=== PATIENT | female | born 1985 | race Caucasian/White ===

== ENCOUNTER → 2016-05-21 | Outpatient (CLI) | payer OTHER ==
[2015-12-09 09:43] VITALS: BP 124/86
[~2016-05-21] MED LIST: ERYT1OIN6 OD; HYDR-2666 PO; HYDR-971 PO; NAPR500T8 PO; OMEP40CA5 PO
--- NOTE | 2016-05-21 14:02 | KCIC ---
Ultrasound Pelvis Indication:Reason For Study Reason: PELVIC PAIN / Spl. Instructions: / History: Technique: Multiple real-time grayscale images were obtained over the pelvis transabdominally and transvaginally. Color Doppler imaging was utilized. Findings: The uterus is normal in size measuring 8.8 x 4.4 x 3.7 cm. The endometrium is also within normal limits measuring 7 mm in thickness. There is a posterior uterine fibroid that measures 3.5 centimeters in size. The right ovary measures 2.2 x 2.0 x 1.6cm. No abnormal right ovarian lesions are identified. Normal blood flow is identified. The left ovary measures 4.3 x 4.1 x 2.9cm. No abnormal left ovarian lesions are identified. There is a 3.7 centimeter septated cyst. There is a small amount of free fluid in the cul-de-sac. Impression: - No acute abnormality. - 3.5 centimeter posterior uterine fibroid. - 3.7 centimeter complex left ovarian cyst. Electronically signed by: Kali De Luna (May 21, 2016 14:01:35)
== END | disposition home or self-care (01) ==
LOC: KCIC US 10:24
PROVIDERS: ATTEND Physician Assistant
DX: R10.2 Pelvic and perineal pain (principal)
CPT/HCPCS: 76830; 76856

== ENCOUNTER 2016-06-01 22:17 | Emergency (ER) | payer OTHER ==
[~2016-06-01] VITALS: Ht 160 cm; Wt 71.7 kg
[~2016-06-01 22:17] MED LIST changes: -HYDR-971 PO; -NAPR500T8 PO
[2016-06-01 22:43] VITALS: BP 128/72
[2016-06-01] MEDS ORDERED: NAPR500T8 PO (22:58)
[2016-06-01] MEDS ORDERED: HYDR-971 PO (22:58)
--- NOTE | 2016-06-01 22:58 | PHYS DOC ---
Past Medical History Past Medical History: Endometriosis, GERD, Other Additional Past Medical Histor: UTERINE FIBROIDS, OVARIAN CYSTS Past Surgical History: Cholecystectomy, Tubal ligation, Other Additional Past Surgical Histo: D&C Alcohol Use: Rarely Drug Use: None Adult General Chief Complaint Chief Complaint: ABDOMINAL PAIN [facility] HPI Patient is a 30 year old female with history of endometriosis, uterine fibroids , and ovarian cyst who presents today with moderate chronic pelvic pain. Patient states she is supposed to follow-up with her COMPUTER ASSEMBLER in 2 weeks to schedule a partial hysterectomy. She states COMPUTER ASSEMBLER is out of town for 2 weeks for spring, she is requesting something for pain. She states she's had a tubal ligation and is not . Review of Systems Review of Systems Constitutional: Denies fever or chills [] Eyes: Denies change in visual acuity, redness, or eye pain [] HENT: Denies nasal congestion or sore throat [] Respiratory: Denies cough or shortness of breath [] Cardiovascular: No additional information not addressed in HPI [] GI:moderate chronic pelvic pain : Denies dysuria or hematuria [] Musculoskeletal: Denies back pain or joint pain [] Integument: Denies rash or skin lesions [] Neurologic: Denies headache, focal weakness or sensory changes [] Endocrine: Denies polyuria or polydipsia [] Allergies Allergies Allergies Coded Allergies Type Severity Reaction Last Updated Verified No Known Drug Allergies 11/12/15 No Physical Exam Physical Exam Constitutional: Well developed, well nourished, no acute distress, non-toxic appearance. [] HENT: Normocephalic, atraumatic, bilateral external ears normal, oropharynx moist, no oral exudates, nose normal. [] Eyes: PERRLA, EOMI, conjunctiva normal, no discharge. [] Neck: Normal range of motion, no tenderness, supple, no stridor. [] Cardiovascular:Heart rate regular rhythm, no murmur [] Lungs & Thorax: Bilateral breath sounds clear to auscultation [] Abdomen: Bowel sounds normal, soft, no tenderness, no masses, no pulsatile masses. [] Skin: Warm, dry, no erythema, no rash. [] Back: No tenderness, no CVA tenderness. [] Extremities: No tenderness, no cyanosis, no clubbing, ROM intact, no edema. [] Neurologic: Alert and oriented X 3, normal motor function, normal sensory function, no focal deficits noted. [] Psychologic: Affect normal, judgement normal, mood normal. [] Current Patient Data Vital Signs Vital Signs Date Time Temp Pulse Resp B/P Pulse Ox O2 Delivery O2 Flow Rate FiO2 06/01/16 22:43 98.0 88 20 128/72 98 Room Air 98.0 EKG EKG [] Radiology/Procedures Radiology/Procedures [] Course & Med Decision Making Course & Med Decision Making Pertinent Labs and Imaging studies reviewed. (See chart for details) Patient is in the ED with chronic pelvic pain due to endometriosis, uterine fibroids and ovarian cyst. She has an appointment with her COMPUTER ASSEMBLER who is currently out of town for 2 weeks. Discharged with [place] and naproxen. Dragon Disclaimer Dragon Disclaimer This electronic medical record was generated, in whole or in part, using a voice recognition dictation system. Departure Departure Impression: Primary Impression: Chronic pelvic pain in female Disposition: 01 HOME, SELF-CARE Condition: STABLE Referrals: ZIYAD LONG MD (PCP) Follow-up with your COMPUTER ASSEMBLER as soon as possible Patient Instructions: Pelvic Pain, Female Additional Instructions: You were seen for chronic pelvic pain. Follow-up with your COMPUTER ASSEMBLER as soon as you can. Come back to the ED for any concerning or worsening symptoms. Scripts Naproxen 500 Mg Tablet.dr1 Tab PO BID #60 TAB Ref 2 Prov:DAVID CAT APRN 06/01/16 Hydrocodone/Apap 5-325 ([place] 5-325 Tablet)1 Each Tablet1-2 Tab PO Q4-6HRS #20 TAB Prov:DAVID CAT APRN 06/01/16 DAVID CAT APRN Jun 01, 2016 22:58
[2016-06-01] MEDS ORDERED: ONDANSETRON ODT 4 MG TAB.RAPDIS PO ONE (23:00)
[2016-06-01] MEDS ORDERED: FENTANYL PF 100 MCG/2 ML VIAL. IM ONE (23:00)
== END 2016-06-01 23:30 | disposition home or self-care (01) ==
LOC: ER 22:17
DX: R10.2 Pelvic and perineal pain (principal); G89.29 Other chronic pain; K21.9 Gastro-esophageal reflux disease without esophagitis
CPT/HCPCS: 81025; 96372; 99283; J3010; Q0162

== ENCOUNTER → 2016-06-18 | Outpatient (CLI) | payer OTHER ==
[2016-06-01 22:43] VITALS: BP 128/72
[~2016-06-18] MED LIST changes: +HYDR-971 PO; +NAPR500T8 PO
[2016-06-18 13:56] LABS: BILIRUBIN,URINE NEGATIVE (NEG); GLUCOSE,URINE NEGATIVE (NEG); NITRITE,URINE NEGATIVE (NEG); PH,URINE 7.5; PROTEIN,URINE NEGATIVE (NEG-TRACE); UROBILINOGEN,URINE 0.2 mg/dL (0.2 mg/dL)
[2016-06-18 14:09] LABS: BACTERIA,URINE 0 /HPF (0-FEW); RBC,URINE OCC /HPF (0-2); SQUAMOUS EPITHELIAL CELL,UR FEW /LPF; WBC,URINE 0 /HPF (0-4)
== END | disposition home or self-care (01) ==
LOC: SURGPAT 12:01
PROVIDERS: ATTEND Specialist
DX: R10.2 Pelvic and perineal pain (principal)
CPT/HCPCS: 81001

== ENCOUNTER 2016-06-25 11:58 | Inpatient (IN) | payer OTHER ==
[~2016-06-25] VITALS: Ht 160 cm; Wt 71.7 kg
[2016-06-25] VITALS (8 sets, daily range): BP systolic 94–114; BP diastolic 45–71
[~2016-06-25 11:58] MED LIST changes: +BUPIVAC MPF-EPI 0.5%-1:200000 30 ML VIAL. ONE; +CEFAZOLIN 2GM PREMIX 50 ML IV PRN; +FENTANYL PF 100 MCG/2 ML VIAL. IV PRN; +HYDROMORPHONE 2 MG/ML VIAL. IV PRN; +IV RINGERS,LACTATED 1000ML 1,000 ML IV SCH; +LIDOCAINE 1% 1 ML SYRINGE. ID PRN; +METHYLENE BLUE 1% 1 ML VIAL. ONE; +METRONIDAZOLE 0.75% TP ONE; +MORPHINE SULFATE 2 MG/ML DISP.SYRIN. IV PRN; +ONDANSETRON PF 4 MG/2 ML VIAL. IV PRN; +PROCHLORPERAZINE 10 MG/2 ML VIAL. IV PRN
[2016-06-25 12:25] LABS: NEG OBC UR NEG; POS OBC UR POS
[2016-06-25] MEDS: FENTANYL PF 100 MCG/2 ML VIAL. IV PRN ×5 (13:27→17:23)
[2016-06-25] MEDS ORDERED: DEXAMETHASONE SOD PHOS 20 MG/5 ML VIAL. ONE (14:18)
[2016-06-25] MEDS ORDERED: ONDANSETRON PF 4 MG/2 ML VIAL. ONE (14:18)
[2016-06-25] MEDS ORDERED: PROPOFOL 20 ML IV ONE (14:18)
[2016-06-25] MEDS ORDERED: LIDOCAINE 2% 100 MG/5 ML SYRINGE. ONE (14:18)
[2016-06-25] MEDS ORDERED: FENTANYL PF 100 MCG/2 ML VIAL. ONE (14:18)
[2016-06-25] MEDS ORDERED: SUCCINYLCHOLINE 200 MG/10 ML VIAL. ONE (14:19)
[2016-06-25] MEDS ORDERED: ROCURONIUM 50 MG/5 ML VIAL. ONE (14:19)
[2016-06-25] MEDS ORDERED: MIDAZOLAM HCL/PF 2 MG/2 ML VIAL. ONE (14:21)
--- NOTE | 2016-06-25 15:07 | PDOC1 ---
History and Physical Date of Admission Date of Admission DATE: 06/25/16 TIME: 15:02 Identification/Chief Complaint Chief Complaint 1. AUB 2. DYSMENORRHEA Source Source: Patient History of Present Illness History of Present Illness 30 y/o WF with hs of AUB and dysmeorrhea unremitting to anti-inflammatories and hormonal tx greater than one year. pt had R/B/I/A discussed in detail with pt and wants definitive tx Past Medical History Cardiovascular: No pertinent hx Pulmonary: No pertinent hx GI: GERD Heme/Onc: No pertinent hx Hepatobiliary: No pertinent hx Psych: No pertinent hx Rheumatologic: No pertinent hx Infectious disease: No pertinent hx ENT: No pertinent hx Endocrine: No pertinent hx Dermatology: No pertinent hx Grav: 2 Para: 2 Past Surgical History Past Surgical History: Cholecystectomy, Tubal Ligation, Other (D & C) Family History Family History: No Significant Social History ALCOHOL: occassional Current Medications Current Medications Current Medications Ondansetron HCl (Zofran) 0.4 mg PRN Q6HRS PRN IV NAUSEA/VOMITING; Start at 07:00; Stop 06/26/16 at 06:59 Fentanyl Citrate (Fentanyl 2ml Vial) 25 mcg PRN Q5MIN PRN IV MILD PAIN; Start 06/25/16 at 07:00; Stop 06/26/16 at 06:59 Fentanyl Citrate (Fentanyl 2ml Vial) 50 mcg PRN Q5MIN PRN IV MODERATE PAIN Last administered on 06/25/16 13:27; Start 06/25/16 at 07:00; Stop 06/26/16 at 06: 59 Morphine Sulfate 1 mg 1 mg PRN Q10MIN PRN IV SEVERE PAIN; Start 06/25/16 at 07: 00; Stop 06/26/16 at 06:59 Lactated Ringer's (Iv Lactated Ringers) 1,000 ml @ 0 mls/hr Q0M IV Last administered on 06/25/16 12:39; Start 06/25/16 at 07:00; Stop 06/25/16 at 18:59 Lidocaine HCl 2 ml PRN 1X PRN ID PRIOR TO IV START; Start 06/25/16 at 07:00; Stop 06/26/16 at 06:59 Hydromorphone HCl (Dilaudid) 0.5 mg PRN Q10MIN PRN IV SEV PAIN, Second choice; Start 06/25/16 at 07:00; Stop 06/26/16 at 06:59 Prochlorperazine Edisylate 5 mg 5 mg PACU PRN PRN IV NAUSEA, MRX1; Start at 07:00; Stop 06/26/16 at 06:59 Cefazolin Sodium/ Dextrose (Ancef 2gm Premix) 50 ml @ 100 mls/hr 1X PREOP PRN IV PRIOR TO PROCEDURE; Start 06/25/16 at 06:00; Stop 06/25/16 at 18:00 Metronidazole (Nydamax) 45 estefania STK-MED ONCE TP ; Start 06/25/16 at 11:29; Stop at 11:45; Status DC Bupivacaine HCl/ Epinephrine Bitart (Sensorcain-Mpf Epi 0.5%-1:001834) 30 ml STK -MED ONCE .ROUTE ; Start 06/25/16 at 11:29; Stop 06/25/16 at 11:45; Status DC Methylene Blue (Methylene Blue) 1 ml STK-MED ONCE .ROUTE ; Start 06/25/16 at 11: 29; Stop 06/25/16 at 11:45; Status DC Dexamethasone Sodium Phosphate (Decadron) 20 mg STK-MED ONCE .ROUTE ; Start 06/25 at 14:18; Stop 06/25/16 at 14:19; Status DC Ondansetron HCl 4 mg 4 mg STK-MED ONCE .ROUTE ; Start 06/25/16 at 14:18; Stop 06/25/16 at 14:19; Status DC Propofol (Diprivan) 20 ml @ As Directed STK-MED ONCE IV ; Start 06/25/16 at 14:18 ; Stop 06/25/16 at 14:19; Status DC Lidocaine HCl (Lidocaine HCl 2% Abboject) 100 mg STK-MED ONCE .ROUTE ; Start 06/25/16 at 14:18; Stop 06/25/16 at 14:19; Status DC Fentanyl Citrate (Fentanyl 2ml Vial) 100 mcg STK-MED ONCE .ROUTE ; Start at 14:18; Stop 06/25/16 at 14:19; Status DC Succinylcholine Chloride (Anectine) 200 mg STK-MED ONCE .ROUTE ; Start 06/25/16 at 14:19; Stop 06/25/16 at 14:20; Status DC Rocuronium [place] (Zemuron) 50 mg STK-MED ONCE .ROUTE ; Start 06/25/16 at 14:19 ; Stop 06/25/16 at 14:20; Status DC Midazolam HCl (Versed) 2 mg STK-MED ONCE .ROUTE ; Start 06/25/16 at 14:21; Stop 06/25/16 at 14:22; Status DC Active Scripts Active Naproxen 500 Mg Tablet. 1 Tab PO BID Reported Hydrocodone-Apap 5-325 (Hydrocodone Bit/Acetaminophen) 1 Each Tablet 1 Tab PO PRN Q6HRS PRN Omeprazole 40 Mg Capsule. 40 Mg PO DAILY Allergies Allergies: Coded Allergies: No Known Drug Allergies (Unverified , 06/25/16) Vitals Vitals Vital Signs Date Time Temp Pulse Resp B/P Pulse Ox O2 Delivery O2 Flow Rate FiO2 06/25/16 13:27 16 06/25/16 12:17 98.2 76 118/74 100 Room Air 98.2 Labs Labs Laboratory Tests Test 06/25/16 12:10 Urine Test Negative (NEG) Laboratory Tests Test 06/25/16 12:10 Urine Test Negative (NEG) VTE Prophylaxis Ordered VTE Prophylaxis Devices: Yes VTE Pharmacological Prophylaxi: No Assessment/Plan Assessment/Plan NA SAMUEL MD Jun 25, 2016 15:07
[2016-06-25] MEDS ORDERED: FAMOTIDINE 20 MG/2 ML VIAL ONE (15:12)
[2016-06-25] MEDS ORDERED: MORPHINE SULFATE 10 MG/ML VIAL. ONE (16:05)
[2016-06-25] MEDS ORDERED: GLYCOPYRROLATE 1 MG/5 ML VIAL. ONE (16:16)
[2016-06-25] MEDS ORDERED: KETOROLAC 60 MG/2 ML INJ FOR OR. ONE (16:16)
[2016-06-25] MEDS ORDERED: NEOSTIGMINE METHYLSULFATE 5 MG/5 ML SYRINGE. ONE (16:16)
[2016-06-25] MEDS ORDERED: SEVOFLURANE 61 TO 120 MINUTES. IH ONE (16:20)
[2016-06-25] MEDS ORDERED: SEVOFLURANE > 120 MINUTES. IH ONE (16:20)
[2016-06-25] MEDS ORDERED: CALCIUM CARBONATE 500 MG TAB.CHEW PO PRN (16:30)
[2016-06-25] MEDS ORDERED: DIPHENHYDRAMINE 50 MG/ML VIAL IV PRN (16:30)
[2016-06-25] MEDS ORDERED: ZOLPIDEM 5 MG TABLET. PO PRN (16:30)
[2016-06-25] MEDS ORDERED: 0.9 % SODIUM CHLORIDE 10 ML DISP.SYRIN. IV PRN (16:30)
[2016-06-25] MEDS ORDERED: NALOXONE 0.4 MG/ML VIAL. IV PRN (16:30)
[2016-06-25] MEDS ORDERED: SIMETHICONE 80 MG TAB.CHEW PO PRN (16:30)
[2016-06-25] MEDS ORDERED: DEXTROSE 50% 25 GM / 50ML DISP.SYRIN. IV PRN (16:30)
[2016-06-25] MEDS ORDERED: MAG HYDROX/ALUMINUM HYD/SIMETH 30 ML ORAL.SUSP PO PRN (16:30)
[2016-06-25] MEDS ORDERED: DIPHENHYDRAMINE HCL 25 MG CAPSULE PO PRN (16:30)
[2016-06-25] MEDS ORDERED: ONDANSETRON PF 4 MG/2 ML VIAL. IV PRN (16:30)
--- NOTE | 2016-06-25 16:30 | PDOC ---
BRIEF OPERATIVE NOTE Pre-Op Diagnosis AUB Post-Op Diagnosis Same Procedure Performed TVH with aspiration of R ovarian cyst Surgeon Bryan Anesthesia Type: General Blood Loss 100cc Specimens Obtained Uterus Findings Dictated Complications None NA MILLER MD Jun 25, 2016 16:30
[2016-06-25] MEDS: OXYCODONE/APAP 5/325 TABLET. PO PRN ×2 (18:10→19:00)
[2016-06-25] MEDS: HYDROMORPHONE 2 MG/ML VIAL. IV PRN ×2 (20:33→22:13)
[2016-06-25] MEDS: SENNOSIDES/DOCUSATE 8.6/50MG TABLET. PO SCH (21:00)
[2016-06-25] MEDS: DOCUSATE SODIUM 100 MG CAPSULE. PO SCH (21:00)
--- NOTE | 2016-06-25 22:27 | OP ---
DATE OF SURGERY: 06/25/2016 PREOPERATIVE DIAGNOSES: Abnormal uterine bleeding, dysmenorrhea and uterine fibroids. POSTOPERATIVE DIAGNOSES: 1. Abnormal uterine bleeding, dysmenorrhea, uterine fibroids. 2. Right ovarian cyst. PROCEDURE: Total vaginal hysterectomy with aspiration of right ovarian cyst. SURGEON: Kali Adams M.D. WATERPROOF COATING MACHINE TENDER: None. ANESTHESIA: General. ESTIMATED BLOOD LOSS: 100 mL. FLUIDS: Crystalloids. SPECIMENS: Uterus. COMPLICATIONS: None. CONDITION: Stable. DESCRIPTION OF PROCEDURE: Risks, benefits, indications and alternatives discussed in detail with the patient, the patient brought to OR theater, [facility]. After adequate general anesthesia, the patient was prepped and draped in the usual sterile manner. A posterior weighted speculum was placed in the vaginal vault. Cervix was grasped with a single tooth tenaculum ____ was placed in the anterior fornix. The posterior cul-de-sac was entered sharply with Short scissors. Posterior leaf of the peritoneum was attached to the vaginal cuff. The cervix had previously been infiltrated with approximately 10 mL of lidocaine with epinephrine. The cervix was circumscribed with a scalpel. The pubovesical cervical fascia was both bluntly and sharply with open Ray-Kely, entered the anterior cul-de-sac bluntly with gloved hand. Uterosacral ligaments were clamped, cut, and tied bilaterally in usual fashion. A long weighted speculum was placed in this space to displace the rectum inferiorly. The uterosacral ligaments were clamped, cut, and tied bilaterally intact. The remaining of the cardinal ligament and broad ligament up to the round ligament were clamped, cut, and tied bilaterally in the usual fashion. Uterus was clipped on its fundus. The remaining attachments were clamped, cut, and tied bilaterally. The uterus was handed off the operative field. There was a hemorrhagic cyst that was noted on the right pole of the ovary; this was aspirated with Bovie cautery. Good hemostasis was assured. Area of bleeding on the right lateral cuff was suture ligated with [id number] stitch. Good hemostasis was assured. Bleeding on the cuff edge was also controlled with Bovie cautery. Posterior cul-de-sac was irrigated copiously with warm normal saline. Parietal peritoneum was reapproximated with a pursestring stitch in the usual fashion. The cuff was reapproximated with vertical mattress sutures. All ligatures and ties had been cut. The vaginal vault was irrigated copiously with warm normal saline, packed with vaginal packing and a MetroGel. Sponge, needle and instrument counts were correct times 2 per nursing staff. The procedure was terminated. The patient went to postop anesthesia recovery in stable condition. Kruger was placed, and clear urine was noted. KALI ADAMS MD DR: TELLY/vi JOB#: [id number] / [id number]
[2016-06-25] MEDS ORDERED: DIPHENHYDRAMINE 50 MG/ML VIAL. IV PRN (23:21)
[2016-06-25] MEDS ORDERED: HYDROMORPHONE 2 MG/ML VIAL. IV PRN (23:30)
[2016-06-26 01:15] VITALS: BP 98/61
[2016-06-26] MEDS: OXYCODONE/APAP 5/325 TABLET. PO PRN ×4 (01:16→13:39)
[2016-06-26 05:20] VITALS: BP 99/66
[2016-06-26 06:42] LABS: CALCIUM 9.2 mg/dL (8.5-10.1); CREATININE 0.7 mg/dL (0.6-1.0); POTASSIUM 3.9 mmol/L (3.5-5.1)
[2016-06-26 07:20] VITALS: BP 107/59
[2016-06-26] MEDS: DOCUSATE SODIUM 100 MG CAPSULE. PO SCH (09:10)
[2016-06-26] MEDS: SENNOSIDES/DOCUSATE 8.6/50MG TABLET. PO SCH (09:10)
[2016-06-26 11:55] VITALS: BP 116/71
[2016-06-26] MEDS ORDERED: ONDANSETRON PF 4 MG/2 ML VIAL. IV PRN (13:56)
--- NOTE | 2016-06-26 14:54 | PDOC3 ---
Discharge Summary* Date of Admission: Jun 25, 2016 Date of Discharge: Jun 26, 2016 Admitting Diagnosis AYB Final Diagnosis Same Procedures TVH Brief Hospital Course Ms. Penaloza is a 30 old female who presented S/P TVH without comp. Hospital course unremarkable Disposition/Orders: D/C to Home CONDITION AT DISCHARGE: Stable Diet: Regular Scheduled Naproxen (Naproxen) 1 TAB PO BID Omeprazole (Omeprazole) 40 MG PO DAILY (Reported) Time Spent Total time spent with patient [] minutes for coordination of care, counseling, and education. NA MILLER MD Jun 26, 2016 14:54
[2016-06-26 15:00] VITALS: BP 118/74
--- NOTE | 2016-06-28 14:43 | PATHOLOGY ---
PATHOLOGY REPORT * * * * * * * * FINAL DIAGNOSIS: Uterus, total vaginal hysterectomy: - Adenomyosis, uterine corpus, subbasal (uterine weight 82 grams). - Chronic cervicitis with focal squamous metaplasia. - Secretory endometrium. COMMENT: There is no evidence of malignancy. (JPM:; d/t: 06/28/16) REPORT ELECTRONICALLY SIGNED BY: Danny Valle M.D. DATE/TIME: 06/28/2016 14:42 * * * * * * * * GROSS PATHOLOGY: The specimen is received in formalin labeled "Soumya Penaloza, uterus and cervix". Received is an 82 g, 8.5 x 4.8 x 4.2 cm previously laterally incised uterus with attached cervix. The uterine serosa is light stuart and smooth to slightly disrupted in appearance. The 0.8 cm cervical os is surrounded by pale stuart, smooth ectocervical mucosa. The uterus is oriented using the peritoneal reflection and the anterior paracervical margin is inked black. The endocervical canal is pale stuart and slightly corrugated in appearance measuring 2.9 cm in length. The endometrial cavity is triangular measuring 4.1 cm in length by 1.3 cm in width. The endometrium is pale stuart, glistening to slightly friable in appearance and measures 0.3 cm in thickness. Serial sectioning reveals a light stuart, trabeculated myometrium measuring up to 2.1 cm in thickness with no grossly distinct nodules or lesions. The specimen is submitted representatively as follows: A1 12:00 cervix A2 6:00 cervix A3 anterior endomyometrium A4 posterior endomyometrium. (CAA; 06/27/2016) INITIAL CPT CODE(S): A; 31316 Professional services performed by [facility] at [address] [address] Technical services performed by [facility] at [address] [place] [address], [address], [place] [address]. SPECIMEN(S) RECEIVED: A.Uterus and cervix CLINICAL HISTORY: Abnormal uterine bleeding, dysmenorrhea PATIENT: SOUMYA PENALOZA /AGE: 811/09/1985 (Age: 30) PATIENT #: [id number] ALT CASE #: SPECIMEN COLLECTION DATE: 06/25/2016 SPECIMEN RECEIVED DATE: 06/26/2016 [facility] - [id number] [address] - PHONE: [phone] * * * END OF REPORT * * *
== END 2016-06-26 15:10 | disposition home or self-care (01) | DRG 743 ==
LOC: SURG 11:58 → 3 SO LND 18:00
PROVIDERS: ADMIT Specialist; ATTEND Specialist
PROC: 0UTC7ZZ Resection of Cervix, Via Natural or Artificial Opening (ICD-10-PCS; 2016-06-25)
PROC: 0U9 Female Reproductive System, Drainage (ICD-10-PCS; 2016-06-25)
PROC: 0UT97ZZ Resection of Uterus, Via Natural or Artificial Opening (ICD-10-PCS; principal; 2016-06-25 13:30)
DX: D25.9 Leiomyoma of uterus, unspecified (principal); K21.9 Gastro-esophageal reflux disease without esophagitis; N83.201 Unspecified ovarian cyst, right side; N93.9 Abnormal uterine and vaginal bleeding, unspecified; Z79.899 Other long term (current) drug therapy
CPT/HCPCS: 36415; 80048; 81025; 85014; 86850; 86900; 86901; J0330; J0690; J1100; J1170; J1200; J1885; J2250; J2270; J2405; J2704; J2710; J3010; J3490; J7120; Q9968; S0028